=== PATIENT | male | born 1955 | race Caucasian/White ===

== ENCOUNTER 2017-06-05 13:02 | Emergency (ER) | payer OTHER, SELFPAY ==
[2017-06-05] MEDS ORDERED: ASPIRIN 325 MG TAB ONE (13:48)
[2017-06-05 14:00] LABS: Absolute Lymphocytes (CBC) 2.2 K/uL (0.7-4.9); Absolute Monocytes 0.4 K/uL (0.1-1.3); Absolute Neutrophil 5.2 K/uL (1.8-8.0); Basophils % 0.9 % (0-1.3); Eosinophils % 3.6 % (0-4.4); Hematocrit 41.2 % (39.6-49.0); Lymphocytes % 26.8 % (15.3-44.8); MCH 31.6 pg (27.0-35.0); MCV 92.3 fL (80-100); MPV 7.6 fL (7.6-11.3); Monocytes % 5.5 % (3.3-12.3); RBC Red Blood Cell Count 4.47 M/uL (4.33-5.43)
[2017-06-05 14:13] LABS: Potassium 4.5 mEq/L (3.6-5.0)
[2017-06-05 14:16] LABS: Albumin 3.2 g/dL (3.2-5.5); Bilirubin Total 0.3 mg/dL (0.3-1.2); Protein, Total 7.3 g/dL (6.0-8.3)
[2017-06-05 14:22] LABS: Urine Blood NEGATIVE (NEG); Urine Glucose NEGATIVE (NEG); Urine Protein NEGATIVE (NEG); Urine Specific Gravity 1.005 (1.005-1.030)
--- NOTE | 2017-06-05 15:05 | RAD REPORT ---
EXAM DESCRIPTION: Cherelle Single View06/05/2017 2:40 pm CLINICAL HISTORY: Chest pain COMPARISON: February 2017 FINDINGS: The lungs appear clear of acute infiltrate. The heart is normal size IMPRESSION: No acute abnormalities displayed
--- NOTE | 2017-06-05 15:23 | EDPHYS ---
Physician Documentation [facility] Name: Rico Bey Age: 62 yrs Sex: Male : 1955 Arrival Date: 06/05/2017 Time: 13:03 Bed 6 Private MD: ED Physician Robbie Vargas HPI: 06/05 15:14 This 62 yrs old Male presents to ER via Ambulatory with complaints of Chest ps1 Pain - Intermittent. 15:14 The patient or guardian reports chest pain that is located primarily in the substernal ps1 area. Onset: this morning. The pain radiates to the left shoulder. Associated signs and symptoms: Pertinent positives: diaphoresis. The chest pain is described as a pressure. Duration: The patient or guardian reports multiple episodes, that are intermittent. Severity of pain: At its worst the pain was moderate in the emergency department the pain has improved. The patient has experienced similar episodes in the past, a few times. hx of PE. on xarelto. . Historical: - Allergies: 13:17 Clindamycin; la1 13:17 Toradol; la1 - PMHx: 13:17 Back pain; PE; la1 - Immunization history:: Adult Immunizations up to date. - Social history:: Smoking status: unknown. ROS: 15:14 Constitutional: Negative for fever, chills, and weight loss, Eyes: Negative for injury, ps1 pain, redness, and discharge, ENT: Negative for injury, pain, and discharge. 15:14 Respiratory: Negative for shortness of breath, cough, wheezing, and pleuritic chest pain, Abdomen/GI: Negative for abdominal pain, nausea, vomiting, diarrhea, and constipation, MS/Extremity: Negative for injury and deformity, Skin: Negative for injury, rash, and discoloration, Neuro: Negative for headache, weakness, numbness, tingling, and seizure. 15:14 Cardiovascular: Positive for chest pain. Exam: 15:14 Constitutional: This is a well developed, well nourished patient who is awake, alert, ps1 and in no acute distress. Head/Face: Normocephalic, atraumatic. Chest/axilla: Normal chest wall appearance and motion. Nontender with no deformity. No lesions are appreciated. Cardiovascular: Regular rate and rhythm. No gallops, murmurs, or rubs. Normal PMI, no JVD. No pulse deficits. Respiratory: Lungs have equal breath sounds bilaterally, clear to auscultation and percussion. No rales, rhonchi or wheezes noted. No increased work of breathing, no retractions or nasal flaring. Abdomen/GI: Soft, non-tender, with normal bowel sounds. No distension or tympany. No guarding or rebound. No evidence of tenderness throughout. Back: No spinal tenderness. No costovertebral tenderness. Full range of motion. Skin: Warm, dry with normal turgor. Normal color with no rashes, no lesions, and no evidence of cellulitis. MS/ Extremity: Pulses equal, no cyanosis. Neurovascular intact. Full, normal range of motion. Neuro: Awake and alert, GCS 15, oriented to person, place, time, and situation. Cranial nerves II-XII grossly intact. Sensory grossly intact. Vital Signs: 13:17 BP 121 / 81; Pulse 65; Resp 19; Temp 97.2; Pulse Ox 100% on R/A; Weight 86.18 kg; la1 Height 5 ft. 5 in. (165.10 cm); 13:50 BP 107 / 67; Pulse 61 MON; Resp 16; Pulse Ox 96% on R/A; sv 14:45 BP 108 / 72; Pulse 55; Resp 13; Pulse Ox 97% on R/A; sv 13:17 Body Mass Index 31.62 (86.18 kg, 165.10 cm) la1 13:50 Sinus Rhythm sv MDM: 13:28 Data reviewed: vital signs, nurses notes, lab test result(s), EKG, radiologic studies. ps1 Refusal of service: The patient/guardian displays adequate decision making capability and despite a detailed discussion of alternatives, benefits, risks, and consequences refuses: Admission to the hospital for further work-up and treatment. 13:56 Patient medically screened. ps1 06/05 13:42 Order name: CBC with Diff; Complete Time: 14:18 ps1 06/05 13:42 Order name: CMP; Complete Time: 14:18 ps1 06/05 13:42 Order name: Troponin (emerg Dept Use Only); Complete Time: 14:48 ps1 06/05 13:42 Order name: CXR XRAY; Complete Time: 15:06 ps1 06/05 13:43 Order name: Urine Dipstick--Ancillary (enter results); Complete Time: 14:48 eb 06/05 13:20 Order name: EKG; Complete Time: 13:21 sv 06/05 13:20 Order name: EKG - Nurse/Tech; Complete Time: 13:36 sv EC:28 Rate is 61 beats/min. Left axis deviation noted. CT interval is normal. QRS interval is ps1 normal. QT interval is normal. T waves are Flattened. Interpreted by me. Administered Medications: 13:50 Drug: Aspirin 325 mg Route: PO; sv 14:23 Follow up: Response: No adverse reaction sv Disposition: 06/05/17 15:22 Patient has left against medical advice. Impression: Chest pain, unspecified. - Patients states they are going to Home. - Condition is Fair. - Discharge Instructions: Nonspecific Chest Pain. Follow up: Hung Mckinley MD; When: 48 Hours; Reason: Recheck today's complaints, Continuance of care, Re-evaluation by your physician. Follow up: Emergency Department; When: As needed; Reason: Fever > 102 F, Trouble breathing, Worsening of condition. - Problem is new. - Symptoms have worsened. Signatures: Dispatcher [employer] Marbella Loza RN Juan Olivarez RN RN la1 Robbie Vargas MD MD ps1
--- NOTE | 2017-06-05 15:23 | ER ---
Nurse's Notes [facility] Name: Rico Bey Age: 62 yrs Sex: Male : 1955 Arrival Date: 06/05/2017 Time: 13:03 Bed 6 Private MD: Diagnosis: Chest pain, unspecified Presentation: 06/05 13:16 Presenting complaint: Patient states: At 0915 this morning for 15-20 minutes I had a la1 very bad chest pain that radiated to my jaw, arm and back, it has been happening intermittently since then. Transition of care: patient was not received from another setting of care. Onset of symptoms was June 05, 2017. Initial Sepsis Screen: Does the patient meet any 2 criteria? No. Patient's initial sepsis screen is negative. Does the patient have a suspected source of infection? No. Patient's initial sepsis screen is negative. Care prior to arrival: None. 13:16 Method Of Arrival: Ambulatory la1 13:16 Acuity: SCOTTY 3 la1 Historical: - Allergies: 13:17 Clindamycin; la1 13:17 Toradol; la1 - PMHx: 13:17 Back pain; PE; la1 - Immunization history:: Adult Immunizations up to date. - Social history:: Smoking status: unknown. Screenin:37 Abuse screen: Denies threats or abuse. Denies injuries from another. Nutritional sv screening: No deficits noted. Tuberculosis screening: No symptoms or risk factors identified. Fall Risk None identified. Assessment: 13:35 General: Appears in no apparent distress. comfortable, well groomed, well developed, sv Behavior is calm, cooperative, appropriate for age. Pain: Denies pain. Neuro: Level of Consciousness is awake, alert, obeys commands, Oriented to person, place, time, situation, Moves all extremities. Full function Gait is steady, Speech is normal. Cardiovascular: Patient's skin is warm and dry. Pulses are 3+ in right radial artery and left radial artery Rhythm is sinus rhythm Chest pain is described as mild, Pt stated that he had chest pain earlier but none at this time. But it lasts about 5 minutes and then he rested and the pain went away but has been off and on since then.. quality is sharp, is located in left anterior chest wall radiates to left arm(s) jaw(s) neck began "earlier today" episodes are intermittent is alleviated by rest. Respiratory: Respiratory effort is even, unlabored, Respiratory pattern is regular, symmetrical, Denies shortness of breath. GI: No signs and/or symptoms were reported involving the gastrointestinal system. Derm: Skin is pink, warm \\T\\ dry. Musculoskeletal: Range of motion: intact in all extremities. 14:46 Reassessment: Patient appears in no apparent distress at this time. No changes from sv previously documented assessment. Patient and/or family updated on plan of care and expected duration. Pain level reassessed. Patient is alert, oriented x 3, equal unlabored respirations, skin warm/dry/pink. 15:21 Reassessment: Patient appears in no apparent distress at this time. Patient and/or sv family updated on plan of care and expected duration. Pain level reassessed. Patient is alert, oriented x 3, equal unlabored respirations, skin warm/dry/pink. Pt wanting to leave. Dr Vargas aware. Pt signed the AMA paperwork but refused to give a reason why he was wanting to leave AM. Spouse at the bedside. Spouse stated that she thinks its because he wants to go fishing tomorrow. Pt stated that he would follow up with his forest pathologist to get it situated. Vital Signs: 13:17 BP 121 / 81; Pulse 65; Resp 19; Temp 97.2; Pulse Ox 100% on R/A; Weight 86.18 kg; la1 Height 5 ft. 5 in. (165.10 cm); 13:50 BP 107 / 67; Pulse 61 MON; Resp 16; Pulse Ox 96% on R/A; sv 14:45 BP 108 / 72; Pulse 55; Resp 13; Pulse Ox 97% on R/A; sv 13:17 Body Mass Index 31.62 (86.18 kg, 165.10 cm) la1 13:50 Sinus Rhythm sv ED Course: 13:03 Patient arrived in ED. as 13:17 Triage completed. la1 13:18 Arm band placed on left wrist. la1 13:19 Marbella Hroner, RN is Primary Nurse. sv 13:20 Patient has correct armband on for positive identification. Bed in low position. sv 13:34 Robbie Vargas MD is Attending Physician. ps1 13:35 pvc monitor on. Pulse ox on. NIBP on. sv 13:35 Initial lab(s) drawn, by me, sent to lab. Inserted saline lock: 20 gauge in right sv antecubital area, using aseptic technique. Blood collected. Flushed right antecubital with 5 ml normal saline. 13:35 Patient maintains SpO2 saturation greater than 95% on room air. sv 13:37 ED physician to see patient. sv 14:38 X-ray completed. Portable x-ray completed in exam room. Patient tolerated procedure kp1 well. 14:39 CXR XRAY In Process Unspecified. EDMS 15:20 Hung Mckinley MD is Referral Physician. ps1 15:20 No provider procedures requiring assistance completed. IV discontinued, intact, sv bleeding controlled, No redness/swelling at site. Pressure dressing applied. Administered Medications: 13:50 Drug: Aspirin 325 mg Route: PO; sv 14:23 Follow up: Response: No adverse reaction sv Outcome: 15:22 AMA AMA form signed sv 15:22 Condition: stable 15:22 Instructed on AMA paperwork. 15:23 Patient left the ED. sv Signatures: Dispatcher [employer] EDDE Marbella Horner, RN Paula Fang Lee, RN RN laBev Sunshine kp1 Robbie Vargas MD MD ps1
--- NOTE | 2017-06-06 06:14 | EKG ---
Test Date: 2017-06-05 Test Time: 13:28:41 Wax Pattern Assembler: ANDI MEASUREMENT RESULTS: Intervals: Rate: 61 FL: 162 QRSD: 82 QT: 446 QTc: 448 [place]: P: FL: 162 QRS: -64 T: -3 INTERPRETIVE STATEMENTS: Normal sinus rhythm Left axis deviation Pulmonary disease pattern Abnormal ECG Compared to ECG 03/02/2017 10:09:08 ST (T wave) deviation no longer present Prolonged QT interval no longer present Electronically Signed On 06-06-17 06:13:59 CDT by Naseem Torres
== END 2017-06-05 15:23 | disposition left against medical advice (07) ==
LOC: ER 13:02
DX: R07.9 Chest pain, unspecified (principal); Z88.3 Allergy status to other anti-infective agents; Z88.8 Allergy status to other drugs, medicaments and biological substances
CPT/HCPCS: 36415; 71045; 80053; 81003; 84484; 85025; 93005; 99285

== ENCOUNTER 2017-07-03 08:54 | Emergency (ER) | payer BC, SELFPAY ==
[2017-07-03] MEDS ORDERED: TETANUS & DIPHTHERIA TOX,ADULT 0.5 ML VIAL ONE (09:19)
--- NOTE | 2017-07-03 10:28 | RAD REPORT ---
EXAM DESCRIPTION: RAD - Ankle Right 3 View - 07/03/2017 9:42 am CLINICAL HISTORY: Twisted ankle, pain, soft tissue swelling COMPARISON: None. FINDINGS: An oblique fracture is present through the distal fibula at the level of the tibiotalar brady int line. No distraction or angulation deformity. Tibial plafond and medial malleolus are intact. No joint effusion seen. No joint space narrowing. Prominent lateral soft tissue swelling present. IMPRESSION: Distal fibula fracture with no distraction or angulation deformity.
[2017-07-03] MEDS ORDERED: HYDROCODONE/APAP 5/325 MG TAB ONE (10:31)
--- NOTE | 2017-07-03 10:51 | EDPHYS ---
Physician Documentation [facility] Name: Rico Bey Age: 62 yrs Sex: Male : 1955 Arrival Date: 07/03/2017 Time: 08:57 Bed 13 Private MD: ED Physician Frantz Matthews HPI: 07/03 11:07 This 62 yrs old Male presents to ER via Wheelchair with complaints of Ankle gs Injury. 11:07 The patient presents with an injury, pain. The complaints affect the right ankle. gs Onset: The symptoms/episode began/occurred acutely, this morning, at 04:00. Context: The problem [place]. Associated signs and symptoms: Pertinent negatives: numbness. Modifying factors: the symptoms are aggravated by weight bearing. Severity of symptoms: At their worst the symptoms were moderate, in the emergency department the symptoms are unchanged. The patient has not experienced similar symptoms in the past. Historical: - Allergies: 09:03 Clindamycin; aa5 09:03 Toradol; aa5 - Home Meds: 09:03 Xarelto oral oral [Active]; aa5 - PMHx: 09:03 Back pain; PE; DVT; aa5 - PSHx: 09:03 Back; aa5 - Immunization history:: Last tetanus immunization: unknown. - Social history:: Smoking status: Patient uses tobacco products, smokes one pack cigarettes per day. ROS: 11:07 All other systems are negative. gs Exam: 11:07 Head/Face: Normocephalic, atraumatic. Eyes: Pupils equal round and reactive to light, gs extra-ocular motions intact. Lids and lashes normal. Conjunctiva and sclera are non-icteric and not injected. Cornea within normal limits. Periorbital areas with no swelling, redness, or edema. ENT: Nares patent. No nasal discharge, no septal abnormalities noted. Tympanic membranes are normal and external auditory canals are clear. Oropharynx with no redness, swelling, or masses, exudates, or evidence of obstruction, uvula midline. Mucous membranes moist. Neck: Trachea midline, no thyromegaly or masses palpated, and no cervical lymphadenopathy. Supple, full range of motion without nuchal rigidity, or vertebral point tenderness. No Meningismus. Chest/axilla: Normal chest wall appearance and motion. Nontender with no deformity. No lesions are appreciated. Cardiovascular: Regular rate and rhythm with a normal S1 and S2. No gallops, murmurs, or rubs. Normal PMI, no JVD. No pulse deficits. Respiratory: Lungs have equal breath sounds bilaterally, clear to auscultation and percussion. No rales, rhonchi or wheezes noted. No increased work of breathing, no retractions or nasal flaring. Abdomen/GI: Soft, non-tender, with normal bowel sounds. No distension or tympany. No guarding or rebound. No evidence of tenderness throughout. Back: No spinal tenderness. No costovertebral tenderness. Full range of motion. Neuro: Awake and alert, GCS 15, oriented to person, place, time, and situation. Cranial nerves II-XII grossly intact. Motor strength 5/5 in all extremities. Sensory grossly intact. Cerebellar exam normal. Normal gait. 11:07 Constitutional: The patient appears alert, awake. 11:07 Musculoskeletal/extremity: Joints: the right ankle displays effusion, painful range of motion, swelling, tenderness. 11:07 Skin: injury, abrasion(s), small abrasion noted, of the right knee. Vital Signs: 08:57 BP 101 / 78; Pulse 63; Resp 19; Temp 98.1(O); Pulse Ox 97% on R/A; Weight 85.28 kg; rb1 Height 5 ft. 5 in. (165.10 cm); Pain 10/10; 09:30 BP 97 / 58; Pulse 53; Resp 18; Pulse Ox 96% on R/A; rb1 10:34 BP 110 / 82; Pulse 74; Resp 16; Pulse Ox 99% on R/A; Pain 6/10; ch 11:08 BP 106 / 64; Pulse 54; Resp 17; Pulse Ox 99% on R/A; rb1 08:57 Body Mass Index 31.28 (85.28 kg, 165.10 cm) rb1 Procedures: 11:07 Splinting: Splint applied to right ankle using Orthoglass splint, applied by tech. gs Examined by me, post splint application: neurovascular intact, 2+ distal pulses palpable, brisk capillary refill noted, Patient tolerated well. MDM: 09:07 Patient medically screened. gs 11:07 Differential diagnosis: fracture, sprain. Data reviewed: vital signs, nurses notes. gs Response to treatment: the patient's symptoms have markedly improved after treatment, and as a result, I will discharge patient. 07/03 09:09 Order name: Ankle Right 3 View XRAY; Complete Time: 11:07 07/03 10:20 Order name: Splint - Ankle: Orthoglass: Stirrup; Complete Time: 10:47 gs Administered Medications: 09:17 Drug: Tetanus-Diphtheria Toxoid Adult 0.5 ml {Technical Consultant: [employer]. Exp: rb1 11/11/2018. Lot #: [id number]. } Route: IM; Site: left deltoid; 10:35 Follow up: Response: No adverse reaction 10:35 Drug: M[place] 5 mg-325 mg 1 tabs Route: PO; 11:08 Follow up: Response: No adverse reaction; Pain is decreased rb1 Disposition: 07/03/17 10:50 Discharged to Home. Impression: Nondisplaced fracture of lateral malleolus of right fibula. - Condition is Stable. - Prescriptions for Tylenol- Codeine #4 300-60 mg Oral Tablet - take 1 tablet by ORAL route every 6 hours As needed; 10 tablet. - Medication Reconciliation Form, Thank You Letter, Antibiotic Education, Prescription Opioid Use form. - Follow up: Luke Tidwell MD; When: 2 - 3 days; Reason: Re-evaluation by your physician. Signatures: Dispatcher [employer] EDAlanis Montalvo RN RN Flori Lozano RN RN aa5 Germania Ovalles RN RN rb1 Frantz Matthews MD MD Corrections: (The following items were deleted from the chart) 11:08 10:50 07/03/2017 10:50 Discharged to Home. Impression: Nondisplaced fracture of lateral rb1 malleolus of right fibula. Condition is Stable. Forms are Medication Reconciliation Form, Thank You Letter, Antibiotic Education, Prescription Opioid Use. Follow up: Luke Tidwell; When: 2 - 3 days; Reason: Re-evaluation by your physician.
--- NOTE | 2017-07-03 10:51 | ER ---
Nurse's Notes [facility] Name: Rico Bey Age: 62 yrs Sex: Male : 1955 Arrival Date: 07/03/2017 Time: 08:57 Bed 13 Private MD: Diagnosis: Nondisplaced fracture of lateral malleolus of right fibula Presentation: 07/03 09:02 Presenting complaint: Patient states: slipped and fell yesterday. Pt states "my leg aa5 went underneath me so I kind of twisted my ankle". Pt c/o right ankle pain. Transition of care: patient was not received from another setting of care. Onset of symptoms was June 2017. Initial Sepsis Screen: Does the patient meet any 2 criteria? No. Patient's initial sepsis screen is negative. Does the patient have a suspected source of infection? No. Patient's initial sepsis screen is negative. Care prior to arrival: None. 09:02 Method Of Arrival: Wheelchair aa5 09:02 Acuity: SCOTTY 4 aa5 Historical: - Allergies: 09:03 Clindamycin; aa5 09:03 Toradol; aa5 - Home Meds: 09:03 Xarelto oral oral [Active]; aa5 - PMHx: 09:03 Back pain; PE; DVT; aa5 - PSHx: 09:03 Back; aa5 - Immunization history:: Last tetanus immunization: unknown. - Social history:: Smoking status: Patient uses tobacco products, smokes one pack cigarettes per day. Screenin:57 Abuse screen: Denies threats or abuse. Nutritional screening: No deficits noted. rb1 Tuberculosis screening: No symptoms or risk factors identified. Fall Risk Fall in past 12 months (25 points). No secondary diagnosis (0 pts). No IV (0 pts). Ambulatory Aid- None/Bed Rest/Nurse Assist (0 pts). Gait- Normal/Bed Rest/Wheelchair (0 pts) Mental Status- Oriented to own ability (0 pts). Total Christie Fall Scale indicates Low Risk Score (25-44 pts). Fall prevention measures have been instituted. Side Rails Up X 2 Placed close to Nursing Station 1:1 attendant Assigned to Pt. Frequent Obs/Assesments occuring Family Present and informed to notify staff if they need to leave bedside As available Patient and Family Educated on Fall Prevention Program and strategies. Assessment: 08:57 General: Appears uncomfortable, Behavior is calm, cooperative, Reports [place]. 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 Denies fever. Pain: Complains of pain in right ankle Pain currently is 10 out of 10 on a pain scale. Pain began 1 day ago. Neuro: Level of Consciousness is awake, alert, obeys commands, Oriented to person, place, time, situation. Cardiovascular: Capillary refill < 3 seconds is brisk in bilateral fingers. Respiratory: Airway is patent Respiratory effort is even, unlabored, Respiratory pattern is regular, symmetrical. GI: No signs and/or symptoms were reported involving the gastrointestinal system. : No signs and/or symptoms were reported regarding the genitourinary system. Derm: Skin is pink, warm \\T\\ dry. Musculoskeletal: Swelling present in right ankle. 10:34 Reassessment: Patient appears in no apparent distress at this time. Patient and/or ch family updated on plan of care and expected duration. Pain level reassessed. Patient is alert, oriented x 3, equal unlabored respirations, skin warm/dry/pink. Vital Signs: 08:57 BP 101 / 78; Pulse 63; Resp 19; Temp 98.1(O); Pulse Ox 97% on R/A; Weight 85.28 kg; rb1 Height 5 ft. 5 in. (165.10 cm); Pain 10/10; 09:30 BP 97 / 58; Pulse 53; Resp 18; Pulse Ox 96% on R/A; rb1 10:34 BP 110 / 82; Pulse 74; Resp 16; Pulse Ox 99% on R/A; Pain 6/10; ch 11:08 BP 106 / 64; Pulse 54; Resp 17; Pulse Ox 99% on R/A; rb1 08:57 Body Mass Index 31.28 (85.28 kg, 165.10 cm) rb1 ED Course: 08:57 Patient arrived in ED. sb2 08:57 Patient has correct armband on for positive identification. Bed in low position. Call rb1 light in reach. Side rails up X 1. Pulse ox on. NIBP on. 09:00 Frantz Matthews MD is Attending Physician. gs 09:02 Triage completed. aa5 09:02 Arm band placed on. aa5 09:09 Germania Ovalles, TAYLOR is Primary Nurse. rb1 09:41 X-ray completed. Portable x-ray completed in exam room. Patient tolerated procedure bb2 well. 09:42 Ankle Right 3 View XRAY In Process Unspecified. EDMS 10:42 Luke Tidwell MD is Referral Physician. 11:08 No provider procedures requiring assistance completed. Patient did not have IV access rb1 during this emergency room visit. Administered Medications: 09:17 Drug: Tetanus-Diphtheria Toxoid Adult 0.5 ml {Film Maker: [employer]. Exp: rb1 11/11/2018. Lot #: [id number]. } Route: IM; Site: left deltoid; 10:35 Follow up: Response: No adverse reaction ch 10:35 Drug: [place] 5 mg-325 mg 1 tabs Route: PO; 11:08 Follow up: Response: No adverse reaction; Pain is decreased rb1 Outcome: 10:50 Discharge ordered by MD. gs 11:08 Patient left the ED. rb1 11:08 Discharged to home via wheelchair, with family. rb1 11:08 Condition: stable 11:08 Discharge instructions given to patient, Instructed on discharge instructions, follow up and referral plans. medication usage, Demonstrated understanding of instructions, follow-up care, medications, Prescriptions given X 1. Signatures: Dispatcher [employer] EDMS Alanis Montes RN RN Flori Lozano RN RN aa5 Germania Ovalles, TAYLOR RN rb1 Frantz Matthews MD MD Florencia Penaloza bb2 Rosa Ospina sb2
== END 2017-07-03 11:08 | disposition home or self-care (01) ==
LOC: ER 08:54
PROC: 2W3QX1Z Immobilization of Right Lower Leg using Splint (ICD-10-PCS; principal; 2017-07-03)
DX: S82.64XA Nondisplaced fracture of lateral malleolus of right fibula, initial encounter for closed fracture (principal); W01.0XXA Fall on same level from slipping, tripping and stumbling without subsequent striking against object, initial encounter; Y93.9 Activity, unspecified; Y92.89 Other specified places as the place of occurrence of the external cause; F17.210 Nicotine dependence, cigarettes, uncomplicated; Z79.02 Long term (current) use of antithrombotics/antiplatelets; Z88.3 Allergy status to other anti-infective agents; Z88.6 Allergy status to analgesic agent; Z86.718 Personal history of other venous thrombosis and embolism; Z23 Encounter for immunization
CPT/HCPCS: 90714; 99284

== ENCOUNTER 2018-06-24 10:05 | Emergency (ER) | payer SELFPAY ==
--- OUTSIDE RECORDS SUMMARY | 2018-06-24 10:08 | XMS REPORT | Continuity of Care Document ---
:1955 Author Organization [facility] Address [address] [place] [address] Phone Unavailable Care Team Providers Name Role Phone PHYSICIAN, NO Primary Care Physician Unavailable Insurance Providers Guarantor Jessie Bey Address [address] [place] [address] Email NONE Payer Self Pay Insurance Subscriber's Name Jessie Bey Relationship Self / Same As Patient Group Number NA Group Name NA Advance Directives Directive Response Recorded Date/Time Advance Directive on File No 05/03/18 5:36am Name of Surrogate/Decision Maker N/A 05/03/18 1:18am Patient/Family Given Education Y - SIGNED 05/03/18...AG 05/03/18 5: 36am Material R/T Directives? Chief Complaint and Reason for Visit Chief Complaint BILATERAL PULMONARY EMBOLISM AND PNEUMONIA Reason for Visit Alzheimer's dementia MAG (acute kidney injury) Deep venous thrombosis Hypertension Hyperlipidemia Problems Medical Problem Onset Date Status MAG (acute kidney injury) Unknown Alzheimer's dementia Unknown CAD (coronary artery disease) Unknown DM2 (diabetes mellitus, type 2) Unknown Deep venous thrombosis Unknown Acute Diastolic CHF, acute Unknown Hyperlipidemia Unknown Chronic Hypertension Unknown Chronic NSTEMI (non-ST elevated myocardial infarction) Unknown Pneumonia Unknown Systolic CHF, acute Unknown UTI (urinary tract infection) Unknown Past Problems Medical Problem Onset Date Status Pneumonia Unknown Acute Pulmonary embolism Unknown Acute Medications Current Home Medications Medication Dose Units Route Directions Days Qty Instructions Start Date Amoxicillin/Cl 1 Tab ORAL Twice A Day for 10 Days 20 Tablet avulanate Antibiotics 9 Potassium (Augmentin *) 875 Mg Tab Bisacodyl 10 Mg ORAL Once Daily for 20 Tablet (Bisacodyl Ec) Constipation 9 5 Mg Tab Hydrocodone-Ac 1 Tab ORAL Four Times Daily 5 Days 20 Tablet etaminophen As Needed as 9 10/325MG * needed for Pain (Nemo 10/325MG *) 1 Tab Tab Rivaroxaban 15 Mg ORAL Twice A Day At 30 Tablet (Xarelto *) 15 5:00AM And 5:00PM 9 Mg Tab for Anticoagulation Social History Social History Problem Response Recorded Date/Time Onset Date Status Hx Physical Abuse No 05/03/2018 1:21am Not Applicable Not Applicable Smoking Status Start Date Stop Date Current every day smoker Hospital Discharge Instructions No hospital discharge instruction information available. Plan of Care Discharge Date 05/05/18 4:05pm Disposition PATIENT DISCHARGE HOME OR SELF Instructions/Education Provided Pulmonary Embolism Acetaminophen; Hydrocodone tablets or capsules Rivaroxaban oral tablets Amoxicillin; Clavulanic Acid tablets Bisacodyl tablets and capsules Deep Vein Thrombosis Community-Acquired Pneumonia, Adult, [id number] Forms Provided Portal Welcome Letter Prescriptions See Medication Section Care Plan and Goals OK TO DC IV AND DC HOME FOLLOW-UP WITH PRIMARY CARE PROVIDER IN 1-2 WEEKS FOLLOW-UP WITH CARDIOLOGY IN 1-2 WEEKS FOLLOW-UP WITH PULMONARY IN 1-2 WEEKS RETURN TO THE ER IF symptoms worsen CALL DR. BARKSDALE AT [phone] IF ANY QUESTIONS REGARDING HOSPITAL STAY. PLEASE CALL THE FLOOR AT [phone] IF ANY MEDICATION OR NURSING QUESTIONS Functional Status No functional status information available. Allergies, Adverse Reactions, Alerts Allergen Type Severity Reaction Status Last Updated Clindamycin ([id number]) Adverse Reaction Intermediate DIARRHEA Active Ketorolac Tromethamine Allergy Unknown Active 05/03/18 ([id number]) Immunizations No immunization information available. Vital Signs Acute Vital Signs Vital Response Date/Time Blood Pressure 122/78 mm Hg 05/05/2018 2:58pm Pulse Pulse Rate (adult) 86 beats per minute (60 - 100) 05/05/2018 3:25pm Respiratory Rate 20 breaths per minute (10 - 24) 05/05/2018 3:25pm Temperature Source Oral 05/05/2018 11:43am Height 5 ft 6 in 05/03/2018 1:21am Weight 217.44 lb 05/05/2018 5:03am Body Mass Index 35.1 kg/m^2 05/05/2018 5:03am Results Laboratory Results Test Name Result Units Flags Reference Collection Result Comments Date/Time Date/Time White Blood Count 11.7 K/ul 4.0-12.3 05/05/2018 05/05/2018 6:45am 7:03am Red Blood Count 3.71 M/ul L 3.80-5.80 05/05/2018 05/05/2018 6:45am 7:03am Hemoglobin 12.4 g/dl 11.67-17.22 05/05/2018 05/05/2018 6:45am 7:03am Hematocrit 35.7 % 35.0-51.0 05/05/2018 05/05/2018 6:45am 7:03am Mean Corpuscular 96.1 fl H 78-96 05/05/2018 05/05/2018 Volume 6:45am 7:03am Mean Corpuscular 33.3 pg 26.8-33.4 05/05/2018 05/05/2018 Hemoglobin 6:45am 7:03am Mean Corpuscular 34.6 g/dl 32.3-36.7 05/05/2018 05/05/2018 Hemoglobin Concent 6:45am 7:03am Red Cell 12.4 % 11.6-15.4 05/05/2018 05/05/2018 Distribution Width 6:45am 7:03am Platelet Count 212 K/ul 115-328 05/05/2018 05/05/2018 6:45am 7:03am Mean Platelet 7.2 fl L 8.4-11.8 05/05/2018 05/05/2018 Volume 6:45am 7:03am Neutrophils (%) 81.7 % 44.7-82.4 05/05/2018 05/05/2018 (Auto) 6:45am 7:03am Lymphocytes (%) 12.3 % 10.0-50.0 05/05/2018 05/05/2018 (Auto) 6:45am 7:03am Monocytes (%) 4.6 % 3.9-13.4 05/05/2018 05/05/2018 (Auto) 6:45am 7:03am Eosinophils (%) 0.7 % 0.0-6.43 05/05/2018 05/05/2018 (Auto) 6:45am 7:03am Basophils (%) 0.7 % 0.0-0.72 05/05/2018 05/05/2018 (Auto) 6:45am 7:03am Random Glucose 112 mg/dL 82-115 05/05/2018 05/05/2018 6:45am 7:16am Blood Urea 13 mg/dL 8-05/05/2018 05/05/2018 Nitrogen 6:45am 7:16am Serum Osmolality 277 L 280-300 05/05/2018 05/05/2018 6:45am 7:16am Creatinine 1.3 mg/dL H 0.70-1.20 05/05/2018 05/05/2018 6:45am 7:16am Glomerular 56.12 L 05/05/2018 05/05/2018 GFR RESULTS ARE REPORTED IN mL/min/1.73m2. Filtration Rate 6:45am 7:16am Calc Normal GFR: >60mL/min Moderately decreased GFR: 30-59 mL/min Severely decreased GFR: 15-29 mL/min Kidney Failure (or Dialysis): <15 mL/min The calculated eGFR is not valid for patients younger than 18 years or older than 75 years. BUN/Creatinine 10.0 L 12-05/05/2018 05/05/2018 Ratio 6:45am 7:16am Sodium Level 138 mmol/L 135-145 05/05/2018 05/05/2018 6:45am 7:16am Potassium Level 4.1 mmol/L 3.5-5.2 05/05/2018 05/05/2018 6:45am 7:16am Chloride Level 103 mmol/L 98-108 05/05/2018 05/05/2018 6:45am 7:16am Carbon Dioxide 23 mmol/L 21-32 05/05/2018 05/05/2018 Level 6:45am 7:16am Anion Gap 16.1 mEq/L 12-20 05/05/2018 05/05/2018 6:45am 7:16am Calcium Level 8.7 mg/dL L 8.8-10.2 05/05/2018 05/05/2018 6:45am 7:16am Phosphorus Level 2.9 mg/dL 2.5-4.5 05/05/2018 05/05/2018 6:45am 7:16am Magnesium Level 2.2 mg/dL 1.6-2.4 05/05/2018 05/05/2018 6:45am 7:16am Total Protein 6.4 g/dL L 6.6-8.7 05/05/2018 05/05/2018 6:45am 7:16am Albumin 2.9 g/dL L 3.5-5.2 05/05/2018 05/05/2018 6:45am 7:16am Globulin 3.5 gm/dL 05/05/2018 05/05/2018 6:45am 7:16am Albumin/Globulin 0.8 >1.0 05/05/2018 05/05/2018 Ratio 6:45am 7:16am Total Bilirubin 0.9 mg/dL 0.0-1.2 05/05/2018 05/05/2018 6:45am 7:16am Aspartate Amino 16 U/L 15-40 05/05/2018 05/05/2018 Transf (AST/SGOT) 6:45am 7:16am Alanine 13 U/L 0-41 05/05/2018 05/05/2018 Aminotransferase 6:45am 7:16am (ALT/SGPT) WW-Uzk-B-Type 87 pg/mL 0-125 05/03/2018 05/03/2018 Natriuretic 1:40am 2:19am Peptide Prostate Specific 0.42 ng/mL 0.0-4.00 05/03/2018 05/03/2018 Antigen Total 6:30pm 7:54pm C-Reactive Protein 231.0 mg/L H 0.0-5.0 05/03/2018 05/03/2018 High Sensitivity 6:30pm 7:17pm Total Alkaline 113 U/L 40-130 05/05/2018 05/05/2018 Phosphatase 6:45am 7:16am Homocysteine 24.1 umol/L H 0.0-15.0 05/03/2018 05/05/2018 Performed at: - [facility] [employer] 6:56pm 7:38am [address], [place] [id number] Sock Drier: Ross Rhodes MD, Phone: [phone] Creatine Kinase 30 U/L 20-200 05/04/2018 05/04/2018 6:21am 6:50am Troponin I < 0.30 ng/mL 0.0-0.5 05/04/2018 05/04/2018 Published clinical studies have shown elevations of cTnI in 6:21am 6:53am patients with myocardial injury, as seen in unstable angina pectoris, cardiac contusions, and heart transplants. Elevations have also been seen in patients with rhabdomyolysis and polymyositis. Elevated troponin levels point to myocardial injury, but are not necessarily indicative of an ischemic mechanism. The term [place] should be used when there is evidence of cardiac damage, as detected by marker proteins in a clinical setting consistent with myocardial ischemia. If the clinical circumstance suggests that an ischemic mechanism is unlikely, other causes of cardiac injury should be considered. For diagnostic purposes, the results should always be assessed in conjunction with the patient's medical history, clinical examination and other findings. Creatine Kinase MB 1.7 ng/ml 0.0-3.6 05/04/2018 05/04/2018 6:21am 6:53am DIAGNOSTIC CITERIA: CKMB CKMB RELATIVE INDEX SUGGESTIVE OF NON-AMI < or=5 N/A ROLAND ZONE (INCONCLUSIVE) > 5 < or=4 SUGGESTIVE OF AMI >5 > 4 Pending Laboratory Results Test Name Collection Date/Time Activated Protein C Resistance 05/03/2018 6:56pm Anti-Cardiolipin IgG Antibody 05/05/2018 6:45am Anti-Cardiolipin IgM Antibody 05/05/2018 6:45am Factor V Leiden Mutation 05/03/2018 6:56pm Factor V Leiden Mutation Note 05/03/2018 6:56pm Lupus Anticoagulant PTT Baseline 05/05/2018 6:45am Dil Shimon Viper Venom Time Interp 05/05/2018 6:45am Dil Shimon Viper Venom Conf (Lupus 05/05/2018 6:45am Microbiology Results Procedure Source Organism/Result Collection Result Result Status Date/Time Date/Time Blood Culture Blood SPECIMEN HAS BEEN 05/03/2018 05/03/2018 Preliminary RECEIVED IN LAB AND 2:18am 2:23am IS IN PROGRESS. Procedures Procedure Status Date Provider(s) X-ray of chest, single view Completed 05/03/18 DOREEN GAUTAM MD Computed tomography angiography of chest for Completed 05/03/18 DOREEN GAUTAM MD pulmonary embolism Encounters Encounter Location Arrival/Admit Date Discharge/Depart Date Attending Provider Discharged [place] 05/03/18 3:09am 05/05/18 4:05pm DWAYNE BARKSDALE [facility] Recent Diagnosis Alzheimer's dementia AMG (acute kidney injury) Deep venous thrombosis Hypertension Hyperlipidemia
--- NOTE | 2018-06-24 12:58 | EDPHYS ---
Physician Documentation [facility] Name: Rico Bey Age: 63 yrs Sex: Male : 1955 Arrival Date: 06/24/2018 Time: 10:09 Bed 26 Private MD: ED Physician Tahir Tsang HPI: 06/24 12:57 This 63 yrs old Male presents to ER via Ambulatory with complaints of pm1 Medication Refill. 12:57 This 63 yrs old Male presents to ER via Ambulatory with complaints of pm1 Medication Refill. 12:57 The patient presents to the emergency department requesting refill(s) for: Xarelto 15 pm1 mg PO BID. The patient chronically suffers from PE and DVT. 12:57 The patient has not recently seen a physician, has an appointment scheduled, Wednesday for pm1 refill of his Xarelto. Patient was instructed to go to the ER for refill of his Xarelto until he can be seen at the office. Patient does not have any chest pain, shortness of breath, or swelling to any extremities. Patient does not want any work up in the ER. He just wants a prescription for Xarelto and will follow up with his new doctor on Wednesday. Historical: - Allergies: 10:21 Clindamycin; tw2 10:21 Toradol; tw2 - Home Meds: 10:21 Xarelto 15 mg oral tab twice a day [Active]; tw2 - PMHx: 10:21 Back pain; PE; DVT; tw2 - PSHx: 10:21 Back; tw2 - Immunization history:: Adult Immunizations. - Social history:: Smoking status: Patient/guardian denies using tobacco, Quit since May 03, 2018. - Ebola Screening: : Patient denies travel to an Ebola-affected area in the 21 days before illness onset. ROS: 12:57 Constitutional: Negative for fever, chills, and weight loss, Eyes: Negative for injury, pm1 pain, redness, and discharge, ENT: Negative for injury, pain, and discharge, Neck: Negative for injury, pain, and swelling, Cardiovascular: Negative for chest pain, palpitations, and edema, Respiratory: Negative for shortness of breath, cough, wheezing, and pleuritic chest pain, Abdomen/GI: Negative for abdominal pain, nausea, vomiting, diarrhea, and constipation, Back: Negative for injury and pain, MS/Extremity: Negative for injury and deformity, Skin: Negative for injury, rash, and discoloration, Neuro: Negative for headache, weakness, numbness, tingling, and seizure. Exam: 12:57 Constitutional: This is a well developed, well nourished patient who is awake, alert, pm1 and in no acute distress. Head/Face: Normocephalic, atraumatic. Neck: Trachea midline, no thyromegaly or masses palpated, and no cervical lymphadenopathy. Supple, full range of motion without nuchal rigidity, or vertebral point tenderness. No Meningismus. Chest/axilla: Normal chest wall appearance and motion. Nontender with no deformity. No lesions are appreciated. Cardiovascular: Regular rate and rhythm with a normal S1 and S2. No gallops, murmurs, or rubs. Normal PMI, no JVD. No pulse deficits. Respiratory: Lungs have equal breath sounds bilaterally, clear to auscultation and percussion. No rales, rhonchi or wheezes noted. No increased work of breathing, no retractions or nasal flaring. Abdomen/GI: Soft, non-tender, with normal bowel sounds. No distension or tympany. No guarding or rebound. No evidence of tenderness throughout. Back: No spinal tenderness. No costovertebral tenderness. Full range of motion. Skin: Warm, dry with normal turgor. Normal color with no rashes, no lesions, and no evidence of cellulitis. MS/ Extremity: Pulses equal, no cyanosis. Neurovascular intact. Full, normal range of motion. 12:57 Neuro: Orientation: is normal, Motor: is normal, moves all fours, Gait: is steady, at a normal pace, without difficulty. Vital Signs: 10:19 BP 121 / 79; Pulse 67; Resp 17; Temp 98.0(O); Pulse Ox 95% on R/A; Weight 92.99 kg (R); tw2 Height 5 ft. 5 in. (165.10 cm); Pain 0/10; 13:01 BP 121 / 80; Pulse 65; Resp 17 S; Temp 98.1(O); Pulse Ox 96% on R/A; ca1 10:19 Body Mass Index 34.11 (92.99 kg, 165.10 cm) tw2 MDM: 12:50 Patient medically screened. pm1 12:57 Data reviewed: vital signs. Data interpreted: Pulse oximetry: on room air is 95 %. pm1 Interpretation: normal. Counseling: I had a detailed discussion with the patient and/or guardian regarding: the historical points, exam findings, and any diagnostic results supporting the discharge/admit diagnosis, the need for outpatient follow up, to return to the emergency department if symptoms worsen or persist or if there are any questions or concerns that arise at home. 16:47 ED course: Patient present to the ER to request for another prescription because he pm1 could not afford 30 pills. His insurance will go in effect on Wednesday and he would like to have 8 pills prescription for Xarelto 15mg. Administered Medications: No medications were administered Disposition: 06/24/18 12:58 Discharged to Home. Impression: Encounter for medication refill. - Condition is Stable. - Discharge Instructions: Medicine Refill at the Emergency Department. - Prescriptions for XARELTO 15 MG TAB - take 15 milligram by ORAL route TWICE DAILY AT 5 AM and 5 PM FOR ANTICOAGULATION; 30 tablet. - Medication Reconciliation Form, Thank You Letter, Antibiotic Education, Prescription Opioid Use form. - Follow up: Emergency Department; When: As needed; Reason: Worsening of condition. Follow up: Private Physician; When: 2 - 3 days; Reason: Recheck today's complaints, Continuance of care, Re-evaluation by your physician. - Problem is new. - Symptoms have improved. Addendum: 06/25/2018 19:25 Co-signature as Attending Physician, Tahir Tsang MD I agree with the assessment and k dr plan of care. Signatures: Tahir Tsang MD MD [facility] Rosy Agustin RN RN ss Sergey Morrison, DORI ARCHITECTURAL ENGINEERING TEACHER pm1 Shivani Sanchez RN RN tw2 Corrections: (The following items were deleted from the chart) 06/24 13:18 12:58 06/24/2018 12:58 Discharged to Home. Impression: Encounter for medication refill. ss Condition is Stable. Forms are Medication Reconciliation Form, Thank You Letter, Antibiotic Education, Prescription Opioid Use. Follow up: Emergency Department; When: As needed; Reason: Worsening of condition. Follow up: Private Physician; When: 2 - 3 days; Reason: Recheck today's complaints, Continuance of care, Re-evaluation by your physician. Problem is new. Symptoms have improved. pm1
--- NOTE | 2018-06-24 12:58 | ER ---
Nurse's Notes [facility] Name: Rico Bey Age: 63 yrs Sex: Male : 1955 Arrival Date: 06/24/2018 Time: 10:09 Bed 26 Private MD: Diagnosis: Encounter for medication refill Presentation: 06/24 10:17 Presenting complaint: Patient states: I ran out of Xarelto and the doctor told me the tw2 best way to get a refill was to come here, i have an appt July 21, we are here from [place], 15mg Xarelto twice a day, i have some leg swelling but its nothing new. Presenting complaint: Patient states: Wednesday was the last day i took the Xarelto, we have been calling and trying to get it refilled. Transition of care: patient was not received from another setting of care. Onset of symptoms was June 24, 2018. Risk Assessment: Do you want to hurt yourself or someone else? Patient reports no desire to harm self or others. Initial Sepsis Screen: Does the patient meet any 2 criteria? No. Patient's initial sepsis screen is negative. Does the patient have a suspected source of infection? No. Patient's initial sepsis screen is negative. Care prior to arrival: None. 10:17 Method Of Arrival: Ambulatory tw2 10:22 Acuity: SCOTTY 3 tw2 Triage Assessment: 10:19 General: Appears in no apparent distress. Behavior is calm, cooperative, appropriate tw2 for age. Pain: Denies pain. Historical: - Allergies: 10:21 Clindamycin; tw2 10:21 Toradol; tw2 - Home Meds: 10:21 Xarelto 15 mg oral tab twice a day [Active]; tw2 - PMHx: 10:21 Back pain; PE; DVT; tw2 - PSHx: 10:21 Back; tw2 - Immunization history:: Adult Immunizations. - Social history:: Smoking status: Patient/guardian denies using tobacco, Quit since May 03, 2018. - Ebola Screening: : Patient denies travel to an Ebola-affected area in the 21 days before illness onset. Screenin:50 Abuse screen: Denies threats or abuse. Denies injuries from another. Nutritional ss screening: No deficits noted. Tuberculosis screening: Never had TB. Fall Risk None identified. Assessment: 11:50 General: Appears in no apparent distress. comfortable, Behavior is calm, cooperative, ss Denies fever, feeling ill, fatigue, chills. Pain: Denies pain. Neuro: Level of Consciousness is awake, alert, obeys commands, Oriented to person, place, time, situation. Cardiovascular: Pulses are palpable in right posterior tibial artery and left posterior tibial artery. Respiratory: Airway is patent Respiratory effort is even, unlabored, Respiratory pattern is regular, symmetrical. GI: No signs and/or symptoms were reported involving the gastrointestinal system. : No signs and/or symptoms were reported regarding the genitourinary system. EENT: Oral mucosa is moist. Throat is clear. Derm: Skin is intact, is healthy with good turgor, Skin is dry, Skin is pink, warm \T\ dry. normal. Musculoskeletal: Circulation, motion, and sensation intact. Range of motion: intact in all extremities, Swelling absent. 12:55 Reassessment: Patient appears in no apparent distress at this time. Patient and/or ss family updated on plan of care and expected duration. Pain level reassessed. Patient is alert, oriented x 3, equal unlabored respirations, skin warm/dry/pink. Vital Signs: 10:19 BP 121 / 79; Pulse 67; Resp 17; Temp 98.0(O); Pulse Ox 95% on R/A; Weight 92.99 kg (R); tw2 Height 5 ft. 5 in. (165.10 cm); Pain 0/10; 13:01 BP 121 / 80; Pulse 65; Resp 17 S; Temp 98.1(O); Pulse Ox 96% on R/A; ca1 10:19 Body Mass Index 34.11 (92.99 kg, 165.10 cm) tw2 ED Course: 10:09 Patient arrived in ED. mr 10:19 Triage completed. tw2 10:19 Arm band placed on. tw2 11:50 Patient has correct armband on for positive identification. Bed in low position. Call ss light in reach. 12:09 Eugenia Moore, TAYLOR is Primary Nurse. ca1 12:39 Sergey Morrison NP is PHCP. pm1 12:40 Tahir Tsang MD is Attending Physician. pm1 12:55 No provider procedures requiring assistance completed. Patient did not have IV access ss during this emergency room visit. 13:17 Rosy Agustin, RN is Primary Nurse. ss Administered Medications: No medications were administered Outcome: 12:58 Discharge ordered by MD. pm1 13:17 Discharged to home ambulatory, with family. ss 13:17 Condition: good 13:17 Discharge instructions given to patient, Instructed on discharge instructions, follow up and referral plans. medication usage, Demonstrated understanding of instructions, follow-up care, medications, Prescriptions given X 1. 13:18 Patient left the ED. ss Signatures: Tyson Liv mr Rosy Agustin, RN RN ss Sergey Morrison, DORI HANDLE TURNER pm1 Shivani Sanchez RN RN tw2 Eugenia Moore RN RN ca1 Corrections: (The following items were deleted from the chart) 10:23 10:17 Acuity: SCOTTY 4 tw2 tw2
== END 2018-06-24 13:18 | disposition home or self-care (01) ==
LOC: ER 10:05
DX: Z76.0 Encounter for issue of repeat prescription (principal); Z86.718 Personal history of other venous thrombosis and embolism; Z79.01 Long term (current) use of anticoagulants; Z87.891 Personal history of nicotine dependence
CPT/HCPCS: 99282